=== PATIENT | male | born 2005 | race Caucasian/White ===

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

== ENCOUNTER 2024-01-15 19:25 | Emergency (ER) | payer SELFPAY ==
[2024-01-15 19:32] VITALS: BP 127/74; PULSE 82; RESP 16; TEMP 36.5; O2SAT 97; BMI 23.7
--- NOTE | 2024-01-16 01:43 | ED_ITS ---
HPI - Skin/Abscess/Foreign Bdy General Chief complaint: Skin/Abscess/Foreign Body Stated complaint: itching all over Source: patient Mode of arrival: Ambulatory Limitations: no limitations History of Present Illness HPI narrative: Patient left without seeing provider Related Data Home Medications Medication Instructions Recorded Confirmed No Known Home Medications 07/23/18 07/23/18 Allergies Allergy/AdvReac Type Severity Reaction Status Date / Time Sulfa (Sulfonamide Allergy Hives Verified 12/08/17 21:09 Antibiotics) No Known Allergies Allergy Uncoded 09/18/17 12:52 Patient History Substance Use Type: marijuana Exam Initial Vital Signs Initial Vital Signs: Vital Signs Temperature 97.7 F 01/15/24 19:32 Pulse Rate 82 01/15/24 19:32 Respiratory Rate 16 01/15/24 19:32 Blood Pressure 127/74 01/15/24 19:32 Pulse Oximetry 97 01/15/24 19:32 Oxygen Delivery Method Room Air 01/15/24 19:32 Course Orders Ordered: ED Orders 01/15/24 19:35 Consult to SUPERVISOR RESIDENTIAL - [employer] Administrator Stat Vital Signs Vital signs: Vital Signs - 8 hr 01/15/24 19:32 Temperature 97.7 F Pulse Rate 82 Respiratory Rate 16 Blood Pressure 127/74 Pulse Oximetry 97 Oxygen Delivery Method Room Air Discharge Plan Departure Patient Disposition: Left Without Being Seen Clinical Impression: Patient left before evaluation by physician Prescriptions: No Action No Known Home Medications
== END 2024-01-15 20:31 | disposition left against medical advice (07) ==
PROVIDERS: Emergency Provider Emergency Medicine; PCP Pediatrics
DX: L29.9 Pruritus, unspecified (principal)
CPT/HCPCS: 99281

== ENCOUNTER 2024-02-08 16:25 | Emergency (ER) | payer OTHER, MEDICAID, SELFPAY ==
[2024-02-08 16:41] VITALS: BP 133/74; PULSE 58; RESP 18; TEMP 36.6; O2SAT 100; BMI 23.3
--- NOTE | 2024-02-08 16:45 | DI.RAD.S_ITS ---
PROCEDURE: XR WRIST RT MIN 3V INDICATIONS: wrist/hand pain after punching wall TECHNIQUE: 4 views of the wrist were acquired. COMPARISON: [facility], CR, XR WRIST LT MIN 3V, 12/30/2019, 16:21. FINDINGS: Bones: No fractures or dislocations. No suspicious bony lesions. Soft tissues: No suspicious soft tissue calcifications. IMPRESSION: No acute bony abnormality. Approved by: Anabelle Montoya M.D.,Ph.D. on 02/08/2024 at 17:32
--- NOTE | 2024-02-08 16:45 | DI.RAD.S_ITS ---
PROCEDURE: XR HAND RT MIN 3V INDICATIONS: wrist/hand pain after punching wall TECHNIQUE: 3 views of the hand(s) acquired. COMPARISON: [facility], CR, XR HAND LT MIN 3V, 12/30/2019, 16:21. FINDINGS: Bones: No fractures or dislocations. Carpal bones are normally aligned. No suspicious bony lesions. Soft tissues: No suspicious soft tissue calcifications. IMPRESSION: No acute bony abnormality. Approved by: Anabelle Montoya M.D.,Ph.D. on 02/08/2024 at 17:32
--- NOTE | 2024-02-08 18:06 | ED.GENADULT ---
HPI - General Adult General Chief complaint: Extremity Injury, Upper Stated complaint: rt hand injury Time Seen by Provider: 02/08/24 17:58 Source: patient Mode of arrival: Ambulatory History of Present Illness HPI narrative: Patient is a 18-year-old right-hand dominant male here for evaluation of a right hand injury. He states that ?a day ago? he punched a wall. Since that time he was had swelling and discomfort to his hand. He did wrap it with an Can bandage prior to arrival. He has been icing it since arrival here in the ER. No elbow pain. No forearm pain. Related Data Home Medications Medication Instructions Recorded Confirmed No Known Home Medications 07/23/18 07/23/18 Allergies Allergy/AdvReac Type Severity Reaction Status Date / Time Sulfa (Sulfonamide Allergy Hives Verified 12/08/17 21:09 Antibiotics) No Known Allergies Allergy Uncoded 09/18/17 12:52 Review of Systems Musculoskeletal Musculoskeletal: Reports system reviewed and no additional complaints, except as documented Integumentary/Breasts Skin/Breast: Reports system reviewed and no additional complaints, except as documented Patient History Social History Smoking Status: Never smoker Smoking Status: Never smoker Substance Use Type: marijuana Exam Initial Vital Signs Initial Vital Signs: Vital Signs Temperature 98 F 02/08/24 16:41 Pulse Rate 58 L 02/08/24 16:41 Respiratory Rate 18 02/08/24 16:41 Blood Pressure 133/74 02/08/24 16:41 Pulse Oximetry 100 02/08/24 16:41 Oxygen Delivery Method Room Air 02/08/24 16:41 Cardio Pulses: radial pulses present on the right Skin Other: Superficial skin abrasions to the dorsum of the right hand specifically over the ring finger and little finger MCP joint. Neuro Sensory Exam: no sensory deficits noted Extrem Other: Right elbow is unremarkable. Right forearms unremarkable. Patient does have swelling to the right hand. It is around the base thumb and the index and middle finger. He has no snuffbox tenderness. Compartments are soft. Procedures Orthopedic Splinting/Casting Injury #1: Side: right Upper Extremity Injury Location: wrist Upper Extremity Immobilizer: thumb spica Post splinting neuro exam: intact Post splinting vascular exam: intact Placed by: Nursing Course Orders Ordered: ED Orders 02/08/24 16:45 XR hand RT min 3V Stat XR wrist RT min 3V Stat Discontinued Medications Ibuprofen (Ibuprofen 400 Mg Tablet) 800 mg PO NOW ONE Stop: 02/08/24 18:04 Vital Signs Vital signs: Vital Signs - 8 hr 02/08/24 16:41 Temperature 98 F Pulse Rate 58 L Respiratory Rate 18 Blood Pressure 133/74 Pulse Oximetry 100 Oxygen Delivery Method Room Air Medical Decision Making Imaging Data Extremity x-ray #1: Radiologist's Impression: PROCEDURE: XR HAND RT MIN 3V INDICATIONS: wrist/hand pain after punching wall TECHNIQUE: 3 views of the hand(s) acquired. COMPARISON: [facility], XR HAND LT MIN 3V, 12/30/2019, 16:21. FINDINGS: Bones: No fractures or dislocations. Carpal bones are normally aligned. No suspicious bony lesions. Soft tissues: No suspicious soft tissue calcifications. IMPRESSION: No acute bony abnormality. Extremity x-ray #2: Radiologist's Impression: PROCEDURE: XR WRIST RT MIN 3V INDICATIONS: wrist/hand pain after punching wall TECHNIQUE: 4 views of the wrist were acquired. COMPARISON: [facility], XR WRIST LT MIN 3V, 12/30/2019, 16:21. FINDINGS: Bones: No fractures or dislocations. No suspicious bony lesions. Soft tissues: No suspicious soft tissue calcifications. IMPRESSION: No acute bony abnormality. [facility] Narrative Medical decision making narrative: No snuffbox tenderness. No fractures noted on the x-rays. Does have significant swelling to his hand consistent with soft tissue injury. He was placed in a preformed thumb spica splint for soft tissue rest. He was given care instructions and return precautions. He expressed understanding and agreement with the plan. Discharge Plan Departure Patient Disposition: Home Clinical Impression: Contusion of hand, right Instructions: How To Perform RICE (Rest, Ice, Compress, Elevate) Activity Restrictions/Additional Instructions: There were no fractures noted on your x-rays. I do recommend that you use the splint as needed for comfort. You can take it off to wash your hands. Tylenol and ibuprofen is appropriate. Ice is also appropriate. Return to the emergency department for new symptoms. Prescriptions: No Action No Known Home Medications Referrals: Marcial Manzanares MD [Primary Care Provider] - Stand Alone Forms: Patient Portal/API
[2024-02-08] MEDS: IBUPROFEN 400 MG TABLET 800 MG PO (18:17)
[2024-02-08 18:19] VITALS: BP 126/78; PULSE 60; RESP 16; O2SAT 97
== END 2024-02-08 18:20 | disposition home or self-care (01) ==
PROVIDERS: Emergency Provider Emergency Medicine; PCP Pediatrics
DX: S60.221A Contusion of right hand, initial encounter (principal); X58.XXXA Exposure to other specified factors, initial encounter
CPT/HCPCS: 73110; 73130; 99283